=== PATIENT | male | born 1970 | race Caucasian/White ===

== ENCOUNTER 2016-09-08 13:30 | Emergency (ER) | payer OTHER ==
[~2016-09-08] VITALS: Ht 195.6 cm; Wt 133.4 kg
[~2016-09-08 13:30] MED LIST: ACYCLOVIR 400400 MG PO; AMOXICILLIN500 M1 PO; ANBESOL MM; DOXYCYCLINE 10100 MG PO; FLEXERIL PO; FLONASE 0.05%50 MCG NASAL; IBUPROFEN 600600 M1 PO; NORCO 5-325 TA1 EACH PO; TRIAMCINOLONE A80 G2 TOP; TYLENOL325 MG PO; VITAMINC500 PO
[2016-09-08] MEDS ORDERED: HYDROCHLOROTH12.5 M1 PO (13:46)
[2016-09-08] MEDS ORDERED: POTASSIUM20 PO (13:47)
[2016-09-08] MEDS ORDERED: HYDROCODONE-AP1 EAC6 PO (13:48)
[2016-09-08] MEDS ORDERED: KEFLEX500 MG PO (13:50)
[2016-09-08] MEDS ORDERED: BACTRIM DS TAB1 EACH PO (13:50)
[2016-09-08 14:06] VITALS: BP 117/73
[2016-10-17] MEDS ORDERED: POLYMYXIN B/TMP10 ML OPHTHALMIC (05:52)
== END 2016-09-08 15:14 | disposition home or self-care (01) ==
LOC: ER 13:30
DX: L03.011 Cellulitis of right finger (principal); F32.9 Major depressive disorder, single episode, unspecified; R47.1 Dysarthria and anarthria; I69.851 Hemiplegia and hemiparesis following other cerebrovascular disease affecting right dominant side

== ENCOUNTER 2017-04-27 09:10 | Emergency (ER) | payer OTHER ==
[~2017-04-27] VITALS: Ht 195.6 cm; Wt 137.9 kg
[~2017-04-27 09:10] MED LIST changes: +BACTRIM DS TAB1 EACH PO; +HYDROCHLOROTH12.5 M1 PO; +HYDROCODONE-AP1 EAC6 PO; +KEFLEX500 MG PO; +POLYMYXIN B/TMP10 ML OPHTHALMIC; +POTASSIUM20 PO
[2017-04-27 10:02] VITALS: BP 111/76
== END 2017-04-27 10:05 | disposition home or self-care (01) ==
LOC: ER 09:10
DX: S01.111A Laceration without foreign body of right eyelid and periocular area, initial encounter (principal); F32.9 Major depressive disorder, single episode, unspecified; W01.198A Fall on same level from slipping, tripping and stumbling with subsequent striking against other object, initial encounter; Y93.89 Activity, other specified; Y92.89 Other specified places as the place of occurrence of the external cause; Y99.8 Other external cause status